=== PATIENT | female | born 1990 | race Caucasian/White ===

== ENCOUNTER 2017-09-05 06:51 | Inpatient (IN) ==
--- OUTSIDE RECORDS SUMMARY | 2017-09-10 16:10 | External Medical Summary | Continuity of Care Document ---
:1990 Author Organization [facility] Address [address] [place], [place] [id number] Phone Care Team Providers Name Role Phone Ping Ojeda MD Unavailable Unavailable Allergies, Adverse Reactions, Alerts Substance Reaction Severity Status PENICILLIN Unknown Active amoxicillin Unknown Active Medications Medication Instructions Dosage Effective Dates Status Comments (start - stop) ferrous sulfate 325 take 1 tablet by 325 MG - Active mg (65 mg iron) ORAL route every tablet day Enzyme Digest - Active capsule multivitamin tablet take 1 tablet by Not Available - Active oral route every day with food Probiotic 10 billion - Active cell capsule Problems Condition Effective Dates (start - stop) Clinical Status Encntr for suprvsn of normal first - preg, third trimester Encounter For Screening For - Streptococcus B 36 weeks gestation of - Encntr for suprvsn of normal first - preg, first trimester 10 weeks gestation of - Encntr for suprvsn of normal first - preg, second trimester 27 weeks gestation of - Matern care for oth or susp poor fetl - grth, 2nd tri, unsp 20 weeks gestation of - 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 Encntr for suprvsn of normal first - preg, third trimester 37 weeks gestation of - Encntr for suprvsn of normal first - preg, second trimester 14 weeks gestation of - Encntr for suprvsn of normal first - preg, second trimester 24 weeks gestation of - Encntr for suprvsn of normal first - preg, second trimester 20 weeks gestation of - Encntr for suprvsn of normal first - preg, second trimester 19 weeks gestation of - Encntr for suprvsn of normal first - preg, third trimester 30 weeks gestation of - Encntr for suprvsn of normal first - preg, third trimester 38 weeks gestation of - Encntr for suprvsn of normal first - preg, third trimester 39 weeks gestation of - Encntr for suprvsn of normal first - preg, third trimester 33 weeks gestation of - Encntr for suprvsn of normal first - preg, third trimester 35 weeks gestation of - Procedures Procedure Date OB Visit No Charge - HOSIERY REPAIRER Cult, pathgnc orgnsm, screen Suscept study, microdilut/agar SOULEYMANE Results Test Name Date and Time Measure Units Reference Range Abnormal Flag Comments Panel Description: CULTURE, GROUP B STREP WITH SUSCEPTIBILITY CULTURE, GROUP B SEE NOTE A CULTURE, GROUP B STREP WITH STREP WITH 17:10:00 SUSCEPTIBILITY MICRO NUMBER: SUSCEPTIBILITY [id number] TEST STATUS: PRELIMINARY SPECIMEN SOURCE: VAGINAL/ANORECTAL SPECIMEN QUALITY: ADEQUATE RESULT: Group B Streptococcus isolated , susceptibility test report to follow.REPORT COMMENT:FASTING:UNKNOWNTest performed at [facility] [id number] [place] [address]Rautbyyu: BRO TUCKER DO,MPH Panel Description: CULTURE, GROUP B STREP WITH SUSCEPTIBILITY CULTURE, GROUP B SEE NOTE A CULTURE, GROUP B STREP WITH STREP WITH 17:10:00 SUSCEPTIBILITY MICRO NUMBER: SUSCEPTIBILITY [id number] TEST STATUS: FINAL SPECIMEN SOURCE: VAGINAL/ANORECTAL SPECIMEN QUALITY: ADEQUATE RESULT: Group B Streptococcus isolated Group B Strep INT SOULEYMANE AMPICILLIN S <=0.25 CEFOTAXIME S <=0.12 CEFTRIAXONE S <=0.12 CLINDAMYCIN S <=0.25 1 LEVOFLOXACIN S 0.5 PENICILLIN S <=0.06 VANCOMYCIN S 0.5S=Susceptible I=Intermediate R=Resistant *=Not TestedNR=Not Reported NN=See Therapy CommentsTHERAPY COMMENTS Note 1: Results of erythromycin testing indicate that testing for inducible clindamycin resistance is not required.REPORT COMMENT:FASTING:UNKNOWNTest performed at [facility] [id number] [place] [address]Trmadzer: BRO TUCKER DO,MPH Advance Directives Directive Yes / No Effective Date File Name Unknown Encounters Encounter Practice Location Reason(s) Diagnoses Date Provider Care Team Description For Visit Members Jon Hernandez for Frank-0 Payne Referring In Womens suprvsn of normal 9-201 Tayla. Provider: Buffy FUNK, first preg, third 8 700 Ping Martin [email or web address] weeks Medical Fast, 110 1522, gestation of [facility] Wilian Olivas, Jeff Lucero [facility], [address], , Fatou Augustine, [place], [address]. tel:[phone] tel:[phone] , . [id number] tel: [phone] Jon Hernandez for Frank-0 Payne Referring In Womens suprvsn of normal 2-201 Tayla. Provider: Buffy FUNK, first preg, third 8 700 Pingronnie Martin [email or web address] weeks Medical Fast, 110 1522, gestation of [facility] Wilian Olivas, Jeff Lucero [facility], [address], , Fatou Augustine, [place], [address]. tel:[phone] tel:[phone] , . [id number] tel: [phone] Jon Augustine Streptococcus B Dec-2 Payne Referring In Womens carrier state 6-201 Tayla. Provider: Buffy FUNK, complicating 7 700 Ping PO Veronica pregnancyEncntr Medical Fast, 110 1522, for suprvsn of [facility] [place], normal first Jeff Lucero, preg, third 120, [address], , [email or web address] weeks Fatou Augustine, [place], [address]. tel: [phone] tel: , [place]. [id number] tel: [phone] Jon Augustine Encntr for Dec-2 Payne Referring In Womens suprvsn of normal 0-201 Tayla. Provider: Buffy FUNK, first preg, third 7 700 Ping NICK Box trimesterEncounte Medical Fast, 110 1522, r For Center Cedeno [place], Screening For Jeff Lucero, Streptococcus B36 120, [address], [id number], weeks gestation [facility], [place], [address]. tel:[phone] tel: , [place]. [id number] tel: [phone] Jon Augustine Encntr for Dec-1 Payne Referring In Womens suprvsn of normal 1-201 Tayla. Provider: Buffy FUNK, first preg, third 7 700 Ping NICK Box [email or web address] weeks Medical Fast, 110 1522, gestation of [facility] Wilian Olivas, Jeff Lucero [place], 120, [address], [id number], [facility], [place], [address]. tel: [phone] tel: , [place]. [id number] tel: [phone] Jon Augustine Encntr for Nov-2 Payne Referring In Womens suprvsn of normal 8-201 Tayla. Provider: Buffy FUNK, first preg, third 7 700 Ping NICK Box [email or web address] weeks Medical Fast, 110 1522, gestation of [facility] Wilian Olivas, Jeff Lucero [place], 120, [address], [id number], [place], [place], [address]. tel: [phone] tel: , [place]. [id number] tel: [phone] Jon Augustine Encntr for Nov-0 Payne Referring In Womens suprvsn of normal 7-201 Tayla. Provider: Buffy FUNK, first preg, third 7 700 Ping PO Box [email or web address] weeks Medical Fast, 110 1522, gestation of [facility] Wilian Olivas, Jeff Lucero, [address], [address], [id number], [facility] [place], [address]. tel:+ [phone] tel: , [place]. [id number] tel: [phone] Jon Augustine Encntr for Oct-1 Payne Referring In Womens suprvsn of normal 8-201 Tayla. Provider: Buffy FUNK, first preg, 7 700 Ping NICK Box second Medical Fast, 110 1522, [email or web address] weeks [place] Rafiq Olivas, gestation of Jeff Lucero, [address], [address], [id number], [facility], [place], [address]. tel:+ [phone] tel:[phone] , [place]. [id number] tel: [phone] Jon Augustine Encntr for Sep-2 Payne Referring In Womens suprvsn of normal 7-201 Tayla. Provider: Buffy FUNK, first preg, 7 700 Ping PO Box second Medical Fast, 110 1522, [email or web address] weeks [place] Rafiq Olivas, gestation of Jeff Lucero, [address], [address], [id number], [facility], [place], [address]. tel:+ [phone] tel: , [place]. [id number] tel: [phone] Jon Augustine Encntr for Aug-3 Payne Referring In Womens suprvsn of normal 0-201 Tayla. Provider: Buffy FUNK, first preg, 7 700 Ping PO Box second Medical Fast, 110 1522, [email or web address] weeks [place] Rafiq Olivas, gestation of Jeff Lucero, [address], [address], [id number], [facility], [place], [address]. tel:+ [phone] tel: , [place]. [id number] tel: [phone] Jon Augustine Matern care for Aug-3 Payne Referring In Womens Ultrasound oth or susp poor 0-201 Tayla. Provider: Buffy FUNK, fetl grth, 2nd 7 700 Ping PO Box tri, [email or web address] weeks Medical Fast, 110 1522, gestation of [place] Rafiq Kerrchita, Jeff Lucero [facility], [address], [address], [id number], [place], [place], [address]. tel: [phone] tel: , [place]. [id number] tel: [phone] Jon Augustine Encntr for Aug-2 Payne Referring In Womens suprvsn of normal 2-201 Tayla. Provider: Buffy FUNK, first preg, 7 700 Ping PO Box second Medical Fast, 110 1522, [email or web address] weeks Center Wilian [place], gestation of Jeff Lucero [facility], [address], [address], [id number], [place], [place], [address]. tel: [phone] tel: , [place]. [id number] tel: [phone] Jon Augustine Encntr for Santosh-1 Payne Referring In Womens suprvsn of normal 9-201 Tayla. Provider: Buffy FUNK, first preg, 7 700 Ping PO Box second Medical Fast, 110 1522, [email or web address] weeks Center Wilian Olivas, gestation of Jeff Lucero [place], 120, [address], [id number], [place], [place], [address]. tel:+ [phone] tel: , [place]. [id number] tel: [phone] Jon Augustine Encntr for Ramesh-2 Payne Referring In Womens suprvsn of normal 1-201 Tayla. Provider: Buffy FUNK, first preg, first 7 700 Ping PO Box [email or web address] weeks Medical Fast, 110 1522, gestation of [place] Rafiq Kerrchita, Jeff Lucero [place], 120, [address], [id number], [place], [place], [address]. tel: [phone] tel: , . [id number] tel: [phone] Family History Family Member Diagnosis Age At Onset Maternal Grandfather Cardiovascular Disease Paternal Grandmother Breast Cancer Maternal Grandfather Stroke Maternal Grandmother Diabetes Maternal Grandmother Cardiovascular Disease Maternal Grandmother Hypertension Sister Thyroid Disorder No family history of Venous Thrombosis No family history of Pulmonary Embolism Maternal Grandmother Kidney Cancer Immunizations Vaccine Date Status Comments Tdap completed Source: New Immunization Record Influenza, injectable, completed Source: New Immunization Record quadrivalent, preservative free, 3 yrs or older Payers Payer name Insurance type Covered green party ID Authorization(s) BMI [place] WPTX CI [id number] [facility] CI [id number] BMI [place] WPPA CI [id number] BMI [facility] CI [id number] Social History Type Description Quantity Date Captured Alcohol Use Details No Caffeine Use Details Unknown Tobacco Use Status Unknown Smoking Status Never smoker Vital Signs Date / Height Weight BMI Pulse Blood Temperature Respiratory Body Head BMI Time: Rate Pressure Rate Surface Circumference percentile Area 2 4:52 kg/m PM eter (2) 139.00 31.1 107/65 lbs 6 mm[Hg] 4:56 kg/m PM eter (2) Chief Complaint And Reason For Visit Unknown Chief Complaint And Reason For Visit Reason For Referral Reason For Referral Unknown Plan Of Care Date Type Action Status Appointment Chanda Juarez BOOKED Future Order: Radiology Order Complete OB Ultrasound > 14 Ordered Weeks ([id number]) Date Type Problem Goal Intervention Status Start Date Unknown. History Of Present Illness Encounter Date Complaint History Of Present Illness This patient has no known history of present illness Functional Status Encounter Date Functional Assessment Cognitive Assessment Unknown Medications Administered Medication Instructions Dosage Effective Dates (start - stop) Status Comments Drug Treatment Unknown Instructions Date Instruction Additional Information gestational glucose lab screening HIV and other routine tests risk factors identified by history anticipated course of care nutrition and weight gain counseling, special diet toxoplasmosis precautions (cats / raw meat) sexual activity exercise indications for ultrasound influenza vaccine environmental / work hazards travel use of any medications (including supplements, vitamins, herbs, OTC drugs) domestic violence seat belt use childbirth classes / hospital facilities hospital registration genetic testing new ob handbook
--- OUTSIDE RECORDS SUMMARY | 2017-09-10 16:10 | External Medical Summary | Continuity of Care Document ---
:1990 Author Organization [facility] Address [address] [place], [place] [id number] Phone Care Team Providers Name Role Phone Ping Ojeda MD Unavailable Unavailable Allergies, Adverse Reactions, Alerts Substance Reaction Severity Status PENICILLIN Unknown Active amoxicillin Unknown Active Medications Medication Instructions Dosage Effective Dates Status Comments (start - stop) Enzyme Digest - Active capsule multivitamin tablet take 1 tablet by Not Available - Active oral route every day with food Probiotic 10 billion - Active cell capsule Problems Condition Effective Dates (start - stop) Clinical Status Matern care for oth or susp poor fetl - grth, 2nd tri, unsp 20 weeks gestation of - Encntr for [...] second trimester 19 weeks gestation of - Procedures Procedure Date Ultrasound exam of preg uterus, complete Results Test Name Date and Time Measure Units Reference Range Abnormal Flag Comments Unknown Advance Directives Directive Yes / No Effective Date File Name Unknown Encounters Encounter Practice Location Reason(s) Diagnoses Date Provider Care Team Description For Visit Members Jon Hernandez for Payne Referring In [facility] suprvsn of Tayla. 700 Provider: nadine Mccoy Medical Ping [address], first preg, Center Rusty [place], [address] [place], [place], second Jeff 120, E Wilian [id number], [email or web address] Dmitri [place] weeks [place], [address], tel: gestation [id number], [place], [address] [place], [address]. tel: tel:[phone] Jon Augustine Matern care Payne Referring In Womens Ultrasound for oth -2016 Tayla. 700 Provider: Buffy FUNK [facility] Ping [address], fetl grth, [address] [place] [address], 2nd tri, Jeff [address], [address] C[address] [id number], [email or web address] Dmitri [place] weeks [place], [address], tel:+21 gestation [phone], [place], [address] [place], [address]. tel: tel:[phone] Jon Augustine Encntr for Payne Referring In Womens [facility] Tayla. 700 Provider: nadine Mccoy [facility] Ping [address], first preg, [address], [address] [place] [address], second Jeff 120, [address] [id number], [email or web address] Dmitri [place] weeks [place], [address], tel:21 gestation [id number], [place], [address] [place], [address]. tel: tel:[phone] Jon Augustine Encntr for Payne Referring In Womens [facility] Tayla. 700 Provider: nadine Mccoy [facility] Ping [address], first preg, [address], [address] [place] [address], second Jeff 120, [address] [id number], [email or web address] Dmitri [place] weeks [place], [address], tel:21 gestation [id number], [place], [address] [place], [address]. tel: tel:[phone] Jon Augustine Encntr for Payne Referring In Womens [facility] Tayla. 700 Provider: nadine Mccoy [facility] Ping [address], first preg, [address], [address] [place] [address], first Jeff 120, E Wilian [id number], [email or web address] Dmitri Augustine PO [place] weeks [place], [address], tel:21 gestation [id number], [place], [address] [place], [address]. tel: tel:[phone] Family History Family Member Diagnosis Age At Onset Maternal Grandfather Cardiovascular Disease Paternal Grandmother Breast Cancer Maternal Grandfather Stroke Maternal Grandmother Diabetes Maternal Grandmother Cardiovascular Disease Maternal Grandmother Hypertension Sister Thyroid Disorder No family history of Venous Thrombosis No family history of Pulmonary Embolism Maternal Grandmother Kidney Cancer Immunizations Vaccine Date Status Comments Unknown Payers Payer name Insurance type Covered alliance party ID Authorization(s) BMI [facility] CI [id number] Social History Type Description Quantity Date Captured Unknown Vital Signs Date / Height Weight BMI Pulse Blood Temperature Respiratory Body Head BMI Time: Rate Pressure Rate Surface Circumference percentile Area Unknown Chief Complaint And Reason For Visit Unknown Chief Complaint And Reason For Visit Reason For Referral Reason For Referral Unknown Plan Of Care Date Type Action Status Appointment Chanda Juarez BOOKED Future Order: Radiology Order Complete OB Ultrasound > 14 Ordered Weeks ([id number]) Date Type Problem Goal Intervention Status Start Date Unknown. History Of Present Illness Encounter Date Complaint History Of Present Illness This patient has no known history of present illness Functional Status Encounter Date Functional Assessment Cognitive Assessment Unknown Medications Administered Medication Instructions Dosage Effective Dates (start - stop) Status Comments Drug Treatment Unknown Instructions Date Instruction Additional Information HIV and other routine tests risk factors [...]
--- OUTSIDE RECORDS SUMMARY | 2017-09-10 16:10 | External Medical Summary | Continuity of Care Document ---
:1990 Author Organization [facility] Address [address] [place], [place] [id number] Phone Care Team Providers Name Role Phone [...] Effective Dates (start - stop) Clinical Status 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 Encntr [...] Procedures Procedure Date OB Visit No Charge Results Test Name Date and Time Measure Units Reference Range Abnormal Flag Comments Unknown Advance Directives Directive Yes / No Effective Date File Name Unknown Encounters Encounter Practice Location Reason(s) Diagnoses Date Provider Care Team Description For Visit Members Jon Augustine Encntr for Aug-0 Payne Referring In Womens suprvsn of normal 9-201 Tayla. Provider: Buffy FUNK, first preg, third 8 700 Ping PO Box [email or web address] weeks Medical Fast, 110 1522, gestation of [facility] Cedeno [place], Dr [facility], [address], [address], [id number], [place] [facility] [place], [address]. tel:+ [phone] tel: [phone] , . [id number] tel: [phone] Jon Augustine Encntr for Aug-0 Payne Referring In Womens suprvsn of normal 2-201 Tayla. Provider: Buffy FUNK, first preg, third 8 700 Ping PO Box [email or web address] weeks Medical Fast, 110 1522, gestation of [facility], Dr [facility], [address], [address], [id number], [place] [facility] [place], [address]. tel:[phone] tel: , [place]. [id number] tel: [phone] [facility] Streptococcus B Dec-2 Payne Referring In Womens carrier state 6-201 Tayla. Provider: Buffy FUNK, complicating 7 700 Ping PO Box pregnancyEncntr Medical Fast, 110 1522, for suprvsn of [facility] Wilian Kerrchita, normal first Jeff Lucero, preg, third 120, [address], [id number], [email or web address] weeks [place], [place], [address]. tel: [phone] tel: , [place]. [id number] tel: [phone] [facility] Encntr for Dec-2 Payne Referring In Womens suprvsn of normal 0-201 Tayla. Provider: Buffy FUNK, first preg, third 7 700 Ping PO Box trimesterEncounte Medical Fast, 110 1522, r For Center Rafiq Wilian Olivas, Screening For Jeff Lucero [place], Streptococcus B36 120, [address], [id number], weeks gestation [place], [place], [address]. tel: [phone] tel: , [place]. [id number] tel: [phone] [facility] Hernandez for Dec-1 Payne Referring In Womens suprvsn of normal 1-201 Tayla. Provider: Buffy FUNK, first preg, third 7 700 Ping PO Box [email or web address] weeks Medical Fast, 110 1522, gestation of Center Rafiq Wilian Olivas, Jeff Lucero [place], 120, [address], [id number], [place], [place], [address]. tel: [phone] tel: , [place]. [id number] tel: [phone] [facility] Leonntr for Nov-2 Payne Referring In Womens suprvsn of normal 8-201 Tayla. Provider: Buffy FUNK, first preg, third 7 700 Ping PO Box [email or web address] weeks Medical Fast, 110 1522, gestation of Center Wilian Olivas, Jeff Lucero [place], [address], [address], , [place], [address]. tel: [phone] tel: , . [id number] tel: [phone] Jon Augustine Encntr for Nov-0 Payne Referring In Womens suprvsn of normal 7-201 Tayla. Provider: Buffy FUNK, first preg, third 7 700 Ping PO Box [email or web address] weeks Medical Fast, 110 1522, gestation of [place] Rafiq Olivas, Jeff Lucero, [address], [address], , [place], [address]. tel: [phone] tel: , . [id number] tel: [phone] Jon Augustine Encntr for Oct-1 Payne Referring In Womens suprvsn of normal 8-201 Tayla. Provider: Buffy FUNK, first preg, 7 700 Ping PO Box second Medical Fast, 110 1522, [email or web address] weeks [place] Rafiq Olivas, gestation of Jeff Lucero, [address], [address], [id number], [place], [address]. tel: [phone] tel: , . [id number] tel: [phone] Jon Augustine Encntr for Sep-2 Payne Referring In Womens suprvsn of normal 7-201 Tayla. Provider: Buffy FUNK, first preg, 7 700 Ping PO Box second Medical Fast, 110 1522, [email or web address] weeks [place] Rafiq Olivas, gestation of Jeff Lucero, 120, [address], [id number], [facility] [place], [address]. tel: [phone] tel: , [place]. [id number] tel: [phone] Jon Augustine Encntr for Aug-3 Payne Referring In Womens suprvsn of normal 0-201 Tayla. Provider: Buffy FUNK, first preg, 7 700 Ping PO Box second Medical Fast, 110 1522, [email or web address] weeks [place] Rafiq Olivas, gestation of Jeff Lucero, [address], [address], [id number], [facility] [place], [address]. tel:+ [phone] tel: , [place]. [id number] tel: [phone] Jon Augustine Matern care for Aug-3 Payne Referring In Womens Ultrasound oth or susp poor 0-201 Tayla. Provider: Buffy FUNK, fetl grth, 2nd 7 700 Ping PO Box tri, [email or web address] weeks Medical Fast, 110 1522, gestation of [facility], Jeff Lucreo [place], [address], [address], [id number], [facility], [place], [address]. tel:[phone] tel: , [place]. [id number] tel: [phone] Jon Augustine Encntr for Aug-2 Payne Referring In Womens suprvsn of normal 2-201 Tayla. Provider: Buffy FUNK, first preg, 7 700 Ping PO Box second Medical Fast, 110 1522, [email or web address] weeks [facility] Wilian Olivas, gestation of Jeff Lucero, [address], [address], [id number], [facility], [place], [address]. tel:[phone] tel: , [place]. [id number] tel: [phone] Jon Augustine Encntr for Santosh-1 Payne Referring In Womens suprvsn of normal 9-201 Tayla. Provider: Buffy FUNK, first preg, 7 700 Ping PO Veronica second Medical Fast, 110 1522, [email or web address] weeks [facility] Wilian Olivas, gestation of Jeff Lucero, [address], [address], [id number], [facility], [place], [address]. tel:+ [phone] tel: , [place]. [id number] tel: [phone] Jon Augustine Encntr for Ramesh-2 Payne Referring In Womens suprvsn of normal 1-201 Tayla. Provider: Buffy FUNK, first preg, first 7 700 Ping PO Box [email or web address] weeks Medical Fast, 110 1522, gestation of Center Rafiq Olivas, Jeff Lucero [place], 120, [address], [id number], [place], [place], [address]. [phone] tel:[phone] , . [id number] tel: [phone] Family History Family Member Diagnosis Age At [...] older Payers Payer name Insurance type Covered alliance party ID Authorization(s) BMI [place] WPPA CI [id number] [facility] CI [id number] BMI [place] WPPA CI [id number] BMI [place] [facility]PP[facility] CI [id number] Social History Type Description Quantity Date Captured Alcohol Use Details No Caffeine Use Details Unknown Tobacco Use Status Unknown Smoking Status Never smoker Vital Signs Date / Height Weight BMI Pulse Blood Temperature Respiratory Body Head BMI Time: Rate Pressure Rate Surface Circumference percentile Area 138.90 31.1 / lbs 4 mm[Hg] 3:50 kg/m PM eter (2) Chief Complaint And Reason For Visit Unknown Chief Complaint And Reason For Visit Reason For Referral Reason For Referral Unknown Plan Of Care Date Type Action Status Appointment Chanda Juarez BOOKED Future Order: Radiology Order Complete OB Ultrasound > 14 Ordered Weeks ([id number]) Date Type Problem Goal Intervention Status Start [...]
--- OUTSIDE RECORDS SUMMARY | 2017-09-10 16:10 | External Medical Summary | Continuity of Care Document ---
:1991 Author Organization [facility] Address [address] [place], [place] [id number] Phone Care Team Providers Name Role Phone [...] For Visit Members Jon Augustine Encntr for Payne Referring In Womens banner Tayla. 700 Provider: nadine Mccoy Medical Ping [address], first preg, [place] Rusty Lucero, [address] [place], [place], third Jeff 120, [address] [id number], [email or web address] Dmitri Augustine [place], [address], tel:+[phone] gestation [id number], [place], [address] [place], [address]. tel: tel:[phone] Jon Augustine Encntr for Payne Referring In [facility] Tayla. 700 Provider: nadine Mccoy Medical Ping [address], first preg, Center Rusty Lucero, [address] [place], [place], third Jeff 120, E Wilian [id number], [place] [facility] [place], [address], tel:+19380 gestation [id number], [place], [address] [place], [address]. tel: tel:[phone] Jon Augustine Encntr for Payne Referring In Womens banner Tayla. 700 Provider: nadine Mccoy Medical Ping [address], first preg, Center Rusty Lucero, [address] [place], [place], third Jeff 120, E [place] [id number], [email or web address] Dmitri Augustine [place], [address], tel:+25505 gestation [id number], [place], [address] [place], [address]. tel: tel:[phone] Jon Augustine Encntr for Payne Referring In Womens banner Tayla. 700 Provider: nadine Mccoy Medical Ping [address], first preg, [place] Rusty Lucero, [address] [place], [place], second Jeff 120, [address] [place] [id number], [email or web address] [place] [facility] [place], [address], tel:+[phone] gestation [id number], [place], [address] [place], [address]. tel: tel:[phone] Jon Augustine Encntr for Payne Referring In Womens banner Tayla. 700 Provider: nadine Mccoy Medical Ping [address], first preg, Center Rusty Lucero, [address] [place], [place], second Jeff 120, [address] [place] [id number], [email or web address] [place] [facility] [place], [address], tel:+16889 gestation [id number], [place], [address] [place], [address]. tel: tel:[phone] Jon Augustine Encntr for Payen Referring In Womens banner Tayla. 700 Provider: nadine Mccoy Medical Ping [address], first preg, Center Rusty Lucero, [address] [place], [place], second Jeff 120, [address] [place] [id number], [email or web address] Augustine [facility] [place], [address], tel:+29854 gestation [id number], [place], [address] [place], [address]. tel: tel:[phone] Jon Augustine Matern care Payne Referring In Womens Ultrasound for ot or Tayla. 700 Provider: gee Mccoy poor Medical Ping [address], fetl grth, [address], [address] [place], [place], 2nd tri, Jeff 120, [address] [place] [id number], [email or web address] [place] [facility] [place], [address], tel:+60788 gestation [id number], [place], [address] [place], [address]. tel: tel:[phone] Jon Augustine Encntr for Payne Referring In [facility] Tayla. 700 Provider: nadine Mccoy [facility] [address], first preg, [place] Rusty Lucero, [address] [place], [place], second Jeff 120, [address] [place] [id number], [email or web address] Dmitri Augustine [place], [address], tel:+21 gestation [id number], [place], [address] [place], [address]. tel: tel:[phone] Jon Augustine Encntr for Payne Referring In Womens banner Tayla. 700 Provider: nadnie Mccoy [facility] [address], first preg, Center Rusty Lucero, [address] [place], [place], second Jeff 120, [address] [place] [id number], [email or web address] Dmitri Augustine [place], [address], tel:21 gestation [id number], [place], [address] [place], [address]. tel: tel:[phone] Jon Augustine Encntr for Payne Referring In Womens banner Tayla. 700 Provider: nadine Mccoy [facility] [address], first preg, [place] Rusty Lucero, [address] [place], [place], first Jeff 120, [address] [place] [id number], [email or web address] [place] [facility] [place], [address], tel:21 gestation [id number], [place], [address] [place], [address]. tel: tel:[phone] Family History Family Member Diagnosis Age At [...] older Payers Payer name Insurance type Covered republican ID Authorization(s) [facility] CI [id number] BMI [place] WPPA CI [id number] BMI [place] WPPA CI [id number] Social History Type Description Quantity Date Captured Alcohol Use Details No Caffeine Use Details Unknown Tobacco Use Status Unknown Smoking Status Never smoker Vital Signs Date / Height Weight BMI Pulse Blood Temperature Respiratory Body Head BMI Time: Rate Pressure Rate Surface Circumference percentile Area 134.80 30.2 104/62 2017 lbs 2 mm[Hg] 4:52 kg/m PM eter (2) 0 4:47 kg/m PM eter (2) Chief Complaint And Reason For Visit Unknown Chief Complaint And Reason For Visit Reason For Referral Reason For Referral Unknown Plan Of Care Date Type Action Status Appointment Chanda Juarez BOOKED Appointment Chanda Juarez BOOKED Appointment Chanda Juarez BOOKED Appointment Chanda Juarez BOOKED Future Order: Radiology Order Complete OB Ultrasound > 14 Ordered Weeks ([id number]) Date Type Problem Goal Intervention Status Start [...]
--- OUTSIDE RECORDS SUMMARY | 2017-09-10 16:10 | External Medical Summary | Continuity of Care Document ---
:1991 Author Organization [facility] Address [address] [place], [place] [id number] Phone Care Team Providers Name Role Phone [...] first trimester 10 weeks gestation of - Matern care for oth or susp poor fetl - grth, 2nd tri, unsp 20 weeks gestation of - Encntr for suprvsn of normal first - preg, second trimester 14 weeks gestation of - Encntr for suprvsn of normal first - preg, second trimester 20 weeks gestation of - 19 weeks gestation of - Encntr for suprvsn of normal first - preg, second trimester Procedures Procedure Date Unknown Results Test Name Date and Time Measure Units Reference Range Abnormal Flag Comments Unknown Advance Directives Directive Yes / No Effective Date File Name Unknown Encounters Encounter Practice Location Reason(s) Diagnoses Date Provider Care Team Description For Visit Members Jon Augustine Encntr for Payne Referring In [facility] suprvsn of 0-201 Tayla. Provider: [place], normal first 7 700 Ping PO [address], second Medical Fast, [address], [email or web address] [facility] Wilian Olivas, weeks gestation Jeff Lucero [facility], of 120, [address], [id number], [facility] [place], [place], [address]. tel:[phone] tel: , [place]. [id number] tel: [phone] Jon Augustine Matern care for Aug-3 Payne Referring In Womens Ultrasound oth or susp poor 0-201 Tayla. Provider: Buffy FUNK, fetl grth, 2nd 7 700 Ping PO [address], [email or web address] Medical Fast, [address] 1522, weeks gestation Center Rafiq Olivas, of Jeff Lucero [place], 120, [address], [id number], [facility] [place], [place], [address]. tel:[phone] tel: , [place]. [id number] tel: [phone] Jon Augustine 19 weeks Aug-2 Payne Referring In Womens gestation of 2-201 Tayla. Provider: Buffy FUNK pregnancyEncntr 7 700 Ping PO Box for suprvsn of Medical Fast, [address] 1522, normal first Center Rafiq Olivas, preg, second Jeff Lucero [facility], trimester 120, [address], [id number], [facility] [place], [place], [address]. tel:[phone] tel: , [place]. [id number] tel: [phone] Jon Augustine Aug-1 Payne In Womens 6-201 Tayla. Buffy FUNK, 7 700 PO [address] Medical [address]22, Center [place], [facility], 120, [id number], [place], [place], tel:[phone] , [place]. tel: [phone] Jon Augustine Encntr for Santosh-1 Payne Referring In Womens suprvsn of 9-201 Tayla. Provider: Buffy FUNK, normal first 7 700 Ping PO [address], second Medical Fast, [address] 1522, [email or web address] Center Rafiq Olivas, weeks gestation Jeff Lucero, of 120, [address], [id number], [facility] [place], [place], [address]. tel:[phone] tel: , [place]. [id number] tel: [phone] Associates [place] Encntr for Jan- Payne Referring In Womens suprvsn of 201 Tayla. Provider: Buffy FUNK, normal first 7 700 Ping NICK Martin preg, first Medical Fast, [address], [email or web address] Center Rafiq Olivas, weeks gestation Jeff Lucero [place], of 120, [address], [id number], [place], [address]. tel: [phone] tel:[phone] , . [id number] tel: [phone] Family History Family Member Diagnosis Age At Onset Maternal Grandfather Cardiovascular Disease Paternal Grandmother Breast Cancer Maternal Grandfather Stroke Maternal Grandmother Diabetes Maternal Grandmother Cardiovascular Disease Maternal Grandmother Hypertension Sister Thyroid Disorder No family history of Venous Thrombosis No family history of Pulmonary Embolism Maternal Grandmother Kidney Cancer Immunizations Vaccine Date Status Comments Unknown Payers Payer name Insurance type Covered democrat ID Authorization(s) [facility] CI [id number] Social History Type Description Quantity Date Captured [...] Complete OB Ultrasound > 14 Ordered Weeks (31946) Date Type Problem Goal Intervention Status Start [...]
--- OUTSIDE RECORDS SUMMARY | 2017-09-10 16:11 | External Medical Summary | Continuity of Care Document ---
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 700 Provider: NICK FUNK Medical Ping [place], [address], first preg, Center Dr, [address] [place], [place], second Jeff 120, [address] [id number], [place] [email or web address] [place] [address], tel:[phone] weeks [place], 6790 gestation [id number], [place], [address]. of [place]. tel:[phone] tel:[phone] [facility] [place] Encntr for Payne Referring [facility] Tayla. 700 Provider: NICK FUNK Medical Ping [place], 1522, first preg, Center , [address] [place], [place], first Jeff 120, [address] [id number], [place] [email or web address] [place], [address], tel:[phone] weeks Fatou [place], 6790 gestation [id number], [place], [address]. of [place]. tel:[phone] tel:[phone] Family History Family Member Diagnosis Age At Onset Maternal Grandfather Cardiovascular Disease Paternal Grandmother Breast Cancer Maternal Grandfather Stroke Maternal Grandmother Diabetes Maternal Grandmother Cardiovascular Disease Maternal Grandmother Hypertension Sister Thyroid Disorder No family history of Venous Thrombosis No family history of Pulmonary Embolism Maternal Grandmother Kidney Cancer Immunizations Vaccine Date Status Comments Unknown Payers Payer name Insurance type Covered constitution party ID Authorization(s) [facility] CI [id number] Social History Type Description Quantity Date Captured Alcohol Use Details No Caffeine Use Details Unknown Tobacco Use Status Unknown Smoking Status Never smoker Vital Signs Date / Height Weight BMI Pulse Blood Temperature Respiratory Body Head BMI Time: Rate Pressure Rate Surface Circumference percentile Area 110.00 24.6 115/61 lbs 6 mm[Hg] 4:46 kg/m PM eter (2) 9 4:42 kg/m PM eter (2) Chief Complaint And Reason For Visit Unknown Chief Complaint And Reason For Visit Reason For Referral Reason For Referral Unknown Plan Of Care Date Type Action Status Appointment Chanda Juarez BOOKED Date Type Problem Goal Intervention Status Start [...]
--- OUTSIDE RECORDS SUMMARY | 2017-09-10 16:11 | External Medical Summary | Continuity of Care Document ---
:1991 Author Organization [facility] Address [address] [place], [place] [phone] Phone Care Team Providers Name Role Phone [...] weeks gestation of - Procedures Procedure Date Immuniz admnin, 1 vac, sngl/combo 19 Yrs + TDAP VACCINE >7 IM OB Visit No Charge Results Test Name Date and Time Measure Units Reference Range Abnormal Flag Comments Unknown Advance Directives Directive Yes / No Effective Date File Name Unknown Encounters Encounter Practice Location Reason(s) Diagnoses Date Provider Care Team Description For Visit Members Jon Leonntr for Payne Referring In [facility] Tayla. 700 Provider: Buffy FUNK [facility] [address], first preg, [place] Rusty Lucero, [address] [place] [address], third Jeff 120, E [address] [id number], Dmitri Augustine [facility] weeks [place], [address], tel:+21 gestation [id number], [place], [address] [place], [address]. tel: tel:[phone] Jon Augustine Encntr for Payne Referring In [facility] Tayla. 700 Provider: nadine Mccoy [employer] [address], first preg, [address], [address] [place], [place], second Jeff 120, E [address] [id number], [email or web address] Dmitri Augustine [place] weeks [place], [address], tel:21 gestation [id number], [place], [address] [place], [address]. tel: tel:[phone] Jon Augustine Encntr for Payne Referring In [facility] Tayla. 700 Provider: Buffy FUNK [employer] [address], first preg, [place] Rusty Lucero, [address] [place], [place], second Jeff 120, E [address] [id number], Dmitri Augustine [place] weeks [place], [address], tel:21 gestation [id number], [place], [address] [place], [address]. tel: tel:[phone] [phone] Jon Augustine Encntr for Payne Referring In [facility] Tayla. 700 Provider: Buffy FUNK normal Medical Ping [address], first preg, Center Rusty Lucero, [address] [place], [place], second Jeff 120, E [address] [id number], [email or web address] Dav[place] [facility] [place] weeks [place], [address], tel:+21 gestation [id number], [place], [address] [place], [address]. tel: tel:[phone] Jon Augustine Matern care Payne Referring In Womens Ultrasound for [facility] or Tayla. 700 Provider: Buffy FUNK [facility] Medical Ping [address], fetl grth, Center Rusty Lucero, [address] [place], [place], 2nd tri, Jeff 120, E [address] [id number], [email or web address] [place] [facility] [place] weeks [place], [address], tel:+21 gestation [id number], [place], [address] [place], [address]. tel: tel:[phone] Jon Augustine Encntr for Payne Referring In Womens [facility] Tayla. 700 Provider: nadine Mccoy Medical Ping [address], first preg, Center Rusty Lucero, [address] [place], [place], second Jeff 120, E Wilian [id number], [email or web address] [place] [facility] [place], [address], tel:+21 gestation [id number], [place], [address] [place], [address]. tel: tel:[phone] Jon Augustine Encntr for Payne Referring In Womens [facility] Tayla. 700 Provider: Buffy FUNK normal [employer] Ping [address], first preg, Center Rusty Lucero, [address] [place], [place], second Jeff 120, E [place]ian [id number], [email or web address] [place] [facility] [place] weeks [place], [address], tel:+21 gestation [id number], [place], [address] [place], [address]. tel: tel:[phone] Jon Augustine Encntr for Payne Referring In Womens [facility] Tayla. 700 Provider: nadine Mccoy [address], first preg, Center Rusty Lucero, [address] [place], [place], first Jeff 120, E [address] [id number], [email or web address] Augustine, Street PO [place] weeks [place], [address], tel:21 gestation [id number], [place], [address] [place], [address]. tel: tel:[phone] [phone] Family History Family Member Diagnosis Age At [...] older Payers Payer name Insurance type Covered democrat ID Authorization(s) BMI [place] WPPA CI [id number] BMI [place] WPPA CI [id number] BMI [place] [employer]PPA CI [id number] Social History Type Description Quantity Date Captured Alcohol Use Details No Caffeine Use Details Unknown Tobacco Use Status Unknown Smoking Status Never smoker Vital Signs Date / Height Weight BMI Pulse Blood Temperature Respiratory Body Head BMI Time: Rate Pressure Rate Surface Circumference percentile Area 129.80 29.1 / lbs 0 mm[Hg] 4:21 kg/m PM eter (2) Chief Complaint And Reason For Visit Unknown Chief Complaint And Reason For Visit Reason For Referral Reason For Referral Unknown Plan Of Care Date Type Action Status Appointment Chanda Juarez BOOKED Future Order: Radiology Order Complete OB Ultrasound > 14 Ordered Weeks ([id number]) Date Type Problem Goal Intervention Status Start [...]
--- OUTSIDE RECORDS SUMMARY | 2017-09-10 16:11 | External Medical Summary | Continuity of Care Document ---
:1991 Author Organization [facility] Allergies Active Description Code Type Severity Reaction Onset Reported/ Identified Relationship Clinical to Patient Status Yes amoxicillin 3675 1 N/A N/A Yes PENICILLIN 14931 1 N/A N/A Medications Medication Packaging Start Date Stop Date Route Dosage Sig Tablet 06/11/2017 FERROUS SULFATE take 1 tablet by ORAL route every day Problems Date Dx Coded Attending Type Code Diagnosis Diagnosed By 04/22/2017 Tayla Payne O36.5920 Matern care for oth or susp poor fetl grth, 2nd tri, unsp 04/22/2017 Tayla Payne Z3A.20 20 weeks gestation of 06/30/2017 Talya Payne Z34.03 Encntr for suprvsn of normal first preg, third trimester 06/30/2017 Tayla Payne Z3A.30 30 weeks gestation of Procedures Code Description [place] [address] Ultrasnd 04/22/2017 exam of preg uterus, compl 46204 OB Visit No 06/30/2017 Charge 09691 Immuniz 06/30/2017 admnin, 1 vac, sngl/combo 29491 TDAP VACCINE 06/30/2017 >7 IM Results There is no data. Encounters ACCT No. Visit Discharge Status Pt. Type Provider Facility Loc./Unit Complaint Date/Time [id number] 09/01/2017 09/01/2017 [facility] Outpatient Payne, 16:30:00 23:59:59 Tayla Dickerson [id number] 08/25/2017 08/25/2017 [facility] Outpatient Payne, 16:00:00 23:59:59 Tayla Dickerson [id number] 08/18/2017 08/18/2017 [facility] Outpatient Payne, 15:50:00 23:59:59 Tayla Dickerson [id number] 08/12/2017 08/12/2017 [facility] Outpatient Payne, 16:30:00 23:59:59 Tayla Dickerson [id number] 08/03/2017 08/03/2017 [facility] Outpatient Payne, 16:05:00 23:59:59 Talya Dickerson [id number] 07/21/2017 07/21/2017 [facility] Out[facility] Payne, 16:30:00 23:59:59 Tayla Dickerson [id number] 06/30/2017 06/30/2017 [facility] Outpatient Payne, 16:15:00 23:59:59 Tayla Dickerson [id number] 06/11/2017 06/11/2017 [facility] Outpatient Payne, 08:53:00 23:59:59 Tayla Dickerson [id number] 06/10/2017 06/10/2017 [facility] Outpatient Payne, 13:40:00 23:59:59 Tayla Dickerson [id number] 05/20/2017 05/20/2017 [facility] Outpatient Payne, 16:00:00 23:59:59 Tayla Dickerson [id number] 04/22/2017 04/22/2017 [facility] Outpatient Payne, 08:30:00 23:59:59 Tayla Dickerson [id number] 04/22/2017 04/22/2017 [facility] Outpatient Payne, 08:15:00 23:59:59 Tayla Dickerson [id number] 04/14/2017 04/14/2017 [facility] Outpatient Payne, 16:30:00 23:59:59 Tayla Dickerson [id number] 04/08/2017 04/08/2017 [facility] Outpatient Payne, 16:05:00 23:59:59 Tayla Dickerson [id number] 03/11/2017 03/11/2017 [facility] Outpatient Payne, 16:30:00 23:59:59 Tayla Dickerson [id number] 02/11/2017 02/11/2017 [facility] Outpatient Payne, 15:45:00 23:59:59 Tayla Dickerson
--- OUTSIDE RECORDS SUMMARY | 2017-09-10 16:11 | External Medical Summary | Continuity of Care Document ---
:1991 Author Organization [facility] Address [address] [place], [place] [phone] Phone Care Team Providers Name Role Phone [...] second trimester 20 weeks gestation of - Procedures Procedure Date OB Visit No Charge Results Test Name Date and Time Measure Units Reference Range Abnormal Flag Comments Unknown Advance Directives Directive Yes / No Effective Date File Name Unknown Encounters Encounter Practice Location Reason(s) Diagnoses Date Provider Care Team Description For Visit Members Jon Delcidr for Payne Referring In [facility] suprvsn of Emily. Gonsalves Provider: nadine Mccoy Medical Ping [address], first preg, Center Rusty Lucero, [address] [place], [place], second Jeff 120, E [address] [id number], [email or web address] Dmitri Augustine [place], [address], tel: gestation [id number], [place], [address] [place], [address]. tel: tel:[phone] Jon Augustine Matern care Payne Referring In Womens Ultrasound for oth or -2016 Tayla. 700 Provider: Buffy FUNK [facility] poor Medical Ping [address], fetl grth, [place] Rusty Lucero, [address] [place], [place], 2nd tri, Jeff 120, E Wilian [id number], [email or web address] Dmitri Augustine [place], [address], tel:21 gestation [id number], [place], [address] [place], [address]. tel: tel:[phone] Jon Augustine Encntr for Payne Referring In W[facility] Tayla. 700 Provider: nadine Mccoy Medical Ping [address], first preg, [address], [address] [place], [place], second Jeff 120, E Wilian [id number], [email or web address] Dmitri Augustine [place], [address], tel:21 gestation [id number], [place], [address] [place], [address]. tel: tel:[phone] Jon Augustine Encntr for Payne Referring In Womens [facility] Tayla. 700 Provider: nadine Mccoy Medical Ping [address], first preg, [address], [address] [place], [place], second Jeff 120, E Wilian [id number], [place] [facility] [place], [address], tel:21 gestation [id number], [place], [address] [place], [address]. tel: tel:[phone] Jon Augustine Encntr for Payne Referring In Womens [facility] Tayla. 700 Provider: nadine Mccoy Medical Ping [address], first preg, [address], [address] [place], [place], first Jeff 120, E Wilian [id number], [email or web address] Dmitri Augustine [place], [address], tel:21 gestation [id number], [place], [address] [place], [address]. tel: tel:[phone] Family History Family Member Diagnosis Age At Onset Maternal Grandfather Cardiovascular Disease Paternal Grandmother Breast Cancer Maternal Grandfather Stroke Maternal Grandmother Diabetes Maternal Grandmother Cardiovascular Disease Maternal Grandmother Hypertension Sister Thyroid Disorder No family history of Venous Thrombosis No family history of Pulmonary Embolism Maternal Grandmother Kidney Cancer Immunizations Vaccine Date Status Comments Unknown Payers Payer name Insurance type Covered libertarian ID Authorization(s) [facility] CI [id number] Social History Type Description Quantity Date Captured Alcohol Use Details No Caffeine Use Details Unknown Tobacco Use Status Unknown Smoking Status Never smoker Vital Signs Date / Height Weight BMI Pulse Blood Temperature Respiratory Body Head BMI Time: Rate Pressure Rate Surface Circumference percentile Area 115.20 25.8 92/55 lbs 2 mm[Hg] 4:57 kg/m PM eter (2) 6 4:38 kg/m PM eter (2) Chief Complaint And Reason For Visit Unknown Chief Complaint And Reason For Visit Reason For Referral Reason For Referral Unknown Plan Of Care Date Type Action Status Appointment Chanda Juarez BOOKED Future Order: Radiology Order Complete OB Ultrasound > 14 Ordered Weeks ([id number]) Date Type Problem Goal Intervention Status Start [...]
--- OUTSIDE RECORDS SUMMARY | 2017-09-10 16:11 | External Medical Summary | Continuity of Care Document ---
:1990 Author Organization [email or web address] Address [address] [place], [place] [id number] Phone Care Team Providers Name Role Phone [...] second trimester 27 weeks gestation of - Encntr for suprvsn [...] third trimester 30 weeks gestation of - Procedures Procedure Date Immuniz admnin, 1 vac, sngl/combo 19 Yrs + Flu Vaccine - Quadrivalent OB Visit No Charge Hemoglobin count, colorimetric Hematocrit blood count Glucose test Venpnctr fngr/heel/ear stick routne Results Test Name Date and Time Measure Units Reference Range Abnormal Flag Comments Panel Description: Glucose [Mass/volume] in Serum or Plasma --1 hour post 50 g glucose PO GLUCOSE, 125 mg/dL <140 N Test performed at [email or web address] GESTATIONAL SCREEN 14:50:00 [employer] [id number] ([id number] [place] [address]Cgydnbeh: BRO TUCKER DO,MPH Panel Description: HEMOGLOBIN + HEMATOCRIT HEMOGLOBIN 14:50:00 10.5 g/dL 11.7-15.5 L HEMATOCRIT 14:50:00 30.5 % 35.0-45.0 L REPORT COMMENT:FASTING :NOTest performed at [employer] [id number] [place] [address]Ozpusxdh: BRO TUCKER DO,MPH Advance Directives Directive Yes / No Effective Date File Name Unknown Encounters Encounter Practice Location Reason(s) Diagnoses Date Provider Care Team Description For Visit Members Jon Hernandez for Payne Referring In [facility] Tayla. 700 Provider: nadine Mccoy [address], first [facility], [place] Rusty Lucero, [address] [place] [address], third [address], Rafiq Cedeno [id number], [email or web address] [facility] [place], [address], tel:+[phone] gestation [id number], [place], [address] [place], [address]. tel: tel:[phone] Jon Hernandez for Payne Referring In [facility] Tayla. 700 Provider: nadine Mccoy [facility] [address], first [facility], [place] Rusty Lucero, [address] [place] [address], second Jeff [address], E Wilian [id number], [email or web address] Dmitri Augustine [place], [address], tel:21 gestation [id number], [place], [address] [place], [address]. tel: tel:[phone] Jon Augustine Encntr for Payne Referring In [facility] Tayla. 700 Provider: Buffy FUNK [facility] [address], first preg, [place] Rusty Lucero, [address] [place], [place], second Jeff 120, E Cedeno [id number], [email or web address] Dmitri Augustine [place], [address], tel:21 gestation [id number], [place], [address] [place], [address]. tel: tel:[phone] Jon Augustine Encntr for Payne Referring In [facility] Tayla. 700 Provider: Buffy FUNK [facility] [address], first preg, [place] Rusty Lucero, [address] [place], [place], second Jeff 120, E Cedeno [id number], [email or web address] Dmitri Augustine [place], [address], tel:21 gestation [id number], [place], [address] [place], [address]. tel: tel:[phone] Jon Augustine Matern care Payne Referring In [facility] Ultrasound for ot Tayla. 700 Provider: Buffy FUNK [facility] [address], fetl grth, [address], [address] [place], [place], 2nd tri, Jeff 120, E Cedeno [id number], [email or web address] Davide [facility] [place], [address], tel:21 gestation [id number], [place], [address] [place], [address]. tel: tel:[phone] Jon Augustine Encntr for Payne Referring In [facility] Tayla. 700 Provider: Buffy FUNK [facility] [address], first preg, [place] Rusty Lucero, [address] [place], [place], second Jeff 120, E Cedeno [id number], [email or web address] Dmitri Augustine [place], [address], tel:21 gestation [id number], [place], [address] [place], [address]. tel: tel:[phone] Jon Augustine Encntr for Payne Referring In [facility] Tayla. 700 Provider: nadine Mccoy [facility] [address], first preg, [place] Rusty Lucero, [address] [place], [place], second Jeff 120, E Cedeno [id number], Dmitri Augustine [place], [address], tel:21 gestation [id number], [place], [address] [place], [address]. tel: tel:[phone] Jon Augustine Encntr for Payne Referring In [facility] Tayla. 700 Provider: nadine Mccoy [facility] [address], first preg, [place] Rusty Lucero, [address] [place], [place], first Jeff 120, E Cedeno [id number], [email or web address] Dmitri Augustine [place], [address], tel:21 gestation [id number], [place], [address] [place], [address]. tel: tel:[phone] Family History Family Member Diagnosis Age At [...] Insurance type Covered green party ID Authorization(s) [facility] WPPA CI [id number] BMI [place] WPPA CI [id number] BMI [place] WPPA CI [id number] Social History Type Description Quantity Date Captured Alcohol Use Details No Caffeine Use Details Unknown Tobacco Use Status Unknown Smoking Status Never smoker Vital Signs Date / Height Weight BMI Pulse Blood Temperature Respiratory Body Head BMI Time: Rate Pressure Rate Surface Circumference percentile Area 125.00 28.0 114/62 2017 lbs 2 mm[Hg] 1:53 kg/m PM eter (2) Chief Complaint And Reason For Visit Unknown Chief Complaint And Reason For Visit Reason For Referral Reason For Referral Unknown Plan Of Care Date Type Action Status Appointment Chanda Juarez BOOKED Future Order: Radiology Order Complete OB Ultrasound > 14 Ordered Weeks ([id number]) Date Type Problem Goal Intervention Status Start [...]
--- OUTSIDE RECORDS SUMMARY | 2017-09-10 16:11 | External Medical Summary | Continuity of Care Document ---
:1990 Author Organization [facility] Address [address] [place], [place] [id number] Phone Care Team Providers Name Role Phone [...] Members Jon Hernandez for Payne Referring In [facility] Tayla. 700 Provider: nadine Mccoy Medical Ping [address], first preg, Center Rusty Lucero, [address] [place], [place], second Jeff 120, E Cedeno [id number], [email or web address] Augustine [facility] [place], [address], tel:[phone] gestation [id number], [place], [address] [place], [address]. tel: tel:[phone] Jon Augustine Encntr for Payne Referring In [facility] Tayla. 700 Provider: nadine Mccoy Medical Ping [address], first preg, Center Rusty Lucero, [address] [place], [place], second Jeff 120, E Cedeno [id number], [email or web address] [facility] [place], [address], tel:+21 gestation [id number], [place], [address] [place], [address]. tel: tel:[phone] Jon Augustine Encntr for Payne Referring In [facility] Tayla. 700 Provider: nadine Mccoy Medical Ping [address], first preg, Center Rusty Lucero, [address] [place], [place], second Jeff 120, E Cedeno [id number], [email or web address] [facility] [place], [address], tel:21 gestation [id number], [place], [address] [place], [address]. tel: tel:[phone] Jon Augustine Matern care Payne Referring In [facility] Ultrasound for ot or -2016 Tayla. 700 Provider: Buffy FUNK susp poor Medical Ping [address], fetl grth, Center Rusty Lucero, [address] [place], [place], 2nd tri, Jeff 120, E Cedeno [id number], [email or web address] [facility] [place], [address], tel:+[phone] gestation [id number], [place], [address] [place], [address]. tel: tel:[phone] Jon Augustine Encntr for Payne [facility] Tayla. 700 Provider: nadine Mccoy [facility] Ping [address], first preg, [place] Rusty Lucero, [address] [place] [address], second Jeff [address], E Cedeno [id number], [email or web address] Dmitri Augustine [place], [address], tel:21 gestation [id number], [place], [address] [place], [address]. tel: tel:[phone] Jon Augustine Encntr for Payne Referring In [facility] Tayla. 700 Provider: nadine Mccoy [facility] Ping [address], first preg, [place] Rusty Lucero, [address] [place] [address], second Jeff [address], E Cedeno [id number], [email or web address] Davide Dmitri [place], [address], tel:21 gestation [id number], [place], [address] [place] . [place], [address]. tel: tel:[phone] Jon Augustine Encntr for Payne [facility] Tayla. 700 Provider: nadine Mccoy [facility] Ping [address], first preg, [place] Rusty Lucero, [address] [place] [address], first Jeff [address], E Cedeno [id number], [email or web address] Davide [facility] [place], [address], tel:21 gestation [id number], [place], [address] [place] . [place], [address]. tel: tel:[phone] Family History Family Member Diagnosis Age At Onset Maternal Grandfather Cardiovascular Disease Paternal Grandmother Breast Cancer Maternal Grandfather Stroke Maternal Grandmother Diabetes Maternal Grandmother Cardiovascular Disease Maternal Grandmother Hypertension Sister Thyroid Disorder No family history of Venous Thrombosis No family history of Pulmonary Embolism Maternal Grandmother Kidney Cancer Immunizations Vaccine Date Status Comments Influenza, injectable, completed Source: New Immunization Record quadrivalent, preservative free, 3 yrs or older Payers Payer name Insurance type Covered alliance party ID Authorization(s) [facility] CI [id number] BMI [facility] CI [id number] Social History Type Description Quantity Date Captured Alcohol Use Details No Caffeine Use Details Unknown Tobacco Use Status Unknown Smoking Status Never smoker Vital Signs Date / Height Weight BMI Pulse Blood Temperature Respiratory Body Head BMI Time: Rate Pressure Rate Surface Circumference percentile Area 122.00 27.3 109/63 -2017 lbs 5 mm[Hg] 4:21 kg/m PM eter (2) Chief Complaint And Reason For Visit Unknown Chief Complaint And Reason For Visit Reason For Referral Reason For Referral Unknown Plan Of Care Date Type Action Status Appointment Chanda Juarez BOOKED Future Order: Radiology Order Complete OB Ultrasound > 14 Ordered Weeks ([id number]) Date Type Problem Goal Intervention Status Start [...]
--- OUTSIDE RECORDS SUMMARY | 2017-09-10 16:11 | External Medical Summary | Continuity of Care Document ---
:1990 Author Organization [facility] Address [address] [place], [place] [phone] Phone Care Team Providers Name Role Phone [...] third trimester 35 weeks gestation of - Encntr for suprvsn [...] third trimester 33 weeks gestation of - Procedures Procedure Date OB Visit No Charge Results Test Name Date and Time Measure Units Reference Range Abnormal Flag Comments Unknown Advance Directives Directive Yes / No Effective Date File Name Unknown Encounters Encounter Practice Location Reason(s) Diagnoses Date Provider Care Team Description For Visit Members Jon Augustine Streptococcus B Dec-2 Payne Referring In [facility] carrier state 6-201 Tayla. Provider: Health BLESSING, complicating 7 700 Ping PO Box pregnancyEncntr Medical Fast, [address], for suprvsn of Center Rafiq Wilian [place], normal first Jeff Lucero, preg, third 120, [address], [id number], [email or web address] weeks Fatou Augustine, [place], [address]. tel:[phone] tel: , [place]. [id number] tel: [phone] Jon Hernandez for Dec-2 Payne Referring In [facility]omens suprvsn of normal 0-201 Tayla. Provider: Health [place], first preg, third 7 700 Ping PO Box trimesterEncounte Medical Fast, [address]22, r For Center Rafiq Olivas, Screening For Jeff Lucero, Streptococcus B36 120, [address], [id number], weeks gestation Fatou Augustine, [place], [address]. tel:[phone] tel: , [place]. [id number] tel: [phone] Jon Hernandez for Dec-1 Payne Referring In Womens suprvsn of normal 1-201 Tayla. Provider: Health PA, first preg, third 7 700 Ping PO [address] [email or web address] weeks Medical Fast, [address] 1522, gestation of [place] Rafiq Cedeno [place], Jeff Lucero [place], 120, [address], [id number], [facility], [place], [address]. tel: [phone] tel: , [place]. [id number] tel: [phone] Jon Augustine Encntr for Nov-2 Payne Referring In Womens suprvsn of normal 8-201 Tayla. Provider: Health PA, first preg, third 7 700 Ping PO Box [email or web address] weeks Medical Fast, [address] 1522, gestation of [place] Rafiq Wilian Olivas, Jeff Lucero [facility], 120, [address], [id number], [facility], [place], [address]. tel: [phone] tel: , [place]. [id number] tel: [phone] Jon Augustine Encntr for Nov-0 Payne Referring In Womens suprn of normal 7-201 Tayla. Provider: Health PA, first preg, third 7 700 Ping PO Box [email or web address] weeks Medical Fast, [address] 1522, gestation of [place] Rafiq Wilian Olivas, Jeff Lucero [facility], 120, [address], [id number], [facility] [place], [address]. tel: [phone] tel: , [place]. [id number] tel: [phone] Jon Augustine Encntr for Oct-1 Payne Referring In [facility]omens suprvsn of normal 8-201 Tayla. Provider: Health PA, first preg, 7 700 Ping PO Box second Medical Fast, [address] 1522, [email or web address] weeks [place] Rafiq Wilian Olivas, gestation of Jeff Lucero, 120, [address], [id number], [facility] [place], [address]. tel: [phone] tel: , [place]. [id number] tel: [phone] Jon Augustine Encntr for Sep-2 Payne Referring In Womens suprvsn of normal 7-201 Tayla. Provider: Buffy FUNK, first preg, 7 700 Ping PO Box second Medical Fast, [address] 1522, weeks [place] Rafiq Olivas, gestation of Jeff Lucero, 120, [address], [id number], [facility], [place], [address]. tel: [phone] tel: , [place]. [id number] tel: [phone] Jon Augustine Encntr for Aug-3 Payne Referring In [facility]omens suprvsn of normal 0-201 Tayla. Provider: Buffy FUNK, first preg, 7 700 Ping PO Box second Medical Fast, [address] 1522, [email or web address] weeks [place] Rafiq Olivas, gestation of Jeff Lucero, 120, [address], , [facility], [place], [address]. tel: [phone] tel: , [place]. [id number] tel: [phone] Jon Augustine Matern care for Aug-3 Payne Referring In [facility]omens Ultrasound oth or susp poor 0-201 Tayla. Provider: Buffy FUNK, fetl grth, 2nd 7 700 Ping PO Box tri, [email or web address] weeks Medical Fast, [address] 1522, gestation of [facility] Wilian Olivas, Jeff Lucero, 120, [address], , [facility], [place], [address]. tel: [phone] tel: , [place]. [id number] tel: [phone] Jon Augustine Encntr for Aug-2 Payne Referring In Womens suprvsn of normal 2-201 Tayla. Provider: Buffy FUNK, first preg, 7 700 Ping PO Box second Medical Fast, [address] 1522, [email or web address] weeks [facility] Wilian Olivas, gestation of Jeff Lucero, 120, [address], [id number], [facility] [place], [address]. tel: [phone] tel: , [place]. [id number] tel: [phone] Jon Augustine Encntr for Feb- Payne Referring In Womens suprvsn of normal 9-201 Tayla. Provider: Buffy FUNK, first preg, 7 700 Ping PO Box second [facility], [address] 1522, [email or web address] weeks Center Rafiq Olivas, gestation of Jeff Lucero, 120, [address], [id number], [place], [address]. tel:[phone] tel:[phone] , . [id number] tel: [phone] Jon Augustine Encntr for Ramesh- Payne Referring In Womens suprvsn of normal 1-201 Tayla. Provider: Buffy FUNK, first preg, first 7 700 Ping PO [address] [email or web address] weeks Medical Fast, [address] 1522, gestation of Center Rafiq Olivas, Jeff Lucero [facility], 120, [address], [id number], [place], [address]. tel:[phone] tel:[phone] , . [id number] tel: [phone] Family History Family Member Diagnosis Age At [...] Insurance type Covered democrat ID Authorization(s) BMI [place] WPPA CI [id number] BMI [place] WPPA CI [id number] [employer] [place] WPPA CI [id number] Social History Type Description Quantity Date Captured Alcohol Use Details No Caffeine Use Details Unknown Tobacco Use Status Unknown Smoking Status Never smoker Vital Signs Date / Height Weight BMI Pulse Blood Temperature Respiratory Body Head BMI Time: Rate Pressure Rate Surface Circumference percentile Area 135.70 30.4 118/72 -2016 lbs 2 mm[Hg] 4:11 kg/m PM eter (2) Chief Complaint And Reason For Visit Unknown Chief Complaint And Reason For Visit Reason For Referral Reason For Referral Unknown Plan Of Care Date Type Action Status Appointment Chanda Juarez BOOKED Appointment Chanda Juarez BOOKED Future Order: Radiology Order Complete OB Ultrasound > 14 Ordered Weeks ([id number]) Date Type Problem Goal Intervention Status Start [...]
--- OUTSIDE RECORDS SUMMARY | 2017-09-10 16:11 | External Medical Summary | Continuity of Care Document ---
:1991 Author Organization [facility] Address [address] [place], [place] [phone] Phone Care Team Providers Name Role Phone [...] Procedure Date OB Visit No Charge - FINE SANDER Results Test Name Date and Time Measure Units Reference Range Abnormal Flag Comments Unknown Advance Directives Directive Yes / No Effective Date File Name Unknown Encounters Encounter Practice Location Reason(s) Diagnoses Date Provider Care Team Description For Visit Members Jon Augustine Encntr for Apyne Referring In [facility] suprvsn of Tayla. 700 Provider: nadine Mccoy Medical Ping [address], first preg, Center Rusty Lucero, [address] [place], [place], second Jeff 120, E Wilian [id number], [email or web address] Dmitri Augustine [place], [address], tel: gestation [phone], [place], [address] [place], [address]. tel: tel:[phone] Jon Augustine Matern care Payne Referring In [facility]omens Ultrasound for oth -2016 Tayla. 700 Provider: Buffy FUNK [facility] Medical Ping [address], fetl grth, [address], [address] [place] [address], 2nd tri, Jeff 120, E Cdeeno [id number], [email or web address] Dmitri Augustine [place], [address], tel:+21 gestation [id number], [place], [address] [place], [address]. tel: tel:[phone] [phone] Jon Augustine Encntr for Payne Referring In [facility] Tayla. 700 Provider: nadine Mccoy [facility] Ping [address], first preg, [address]y [address], [address] [place] [address], second Jeff 120, E Cedeno [id number], [email or web address] Dmitri Augustine [place], [address], tel:21 gestation [id number], [place], [address] [place], [address]. tel: tel:[phone] Jon Augustine Encntr for Payne Referring In [facility] Tayla. 700 Provider: nadine Mccoy [facility] Ping [address], first preg, [address], [address] [place] [address], second Jeff 120, E Cedeno [id number], [email or web address] Dmitri Augustine [place], [address], tel:21 gestation [id number], [place], [address] [place], [address]. tel: tel:[phone] Jon Augustine Encntr for Payne Referring In [facility] Tayla. 700 Provider: nadine Mccoy [facility] Ping [address], first preg, [address]y [address], [address] [place] [address], first Jeff 120, E Wilian [id number], [email or web address] Dmitri Augustine PO [place] weeks [place], [address], tel:21 gestation [id number], [place], [address] [place], [address]. tel: tel:[phone] Family History Family Member Diagnosis Age At [...] Insurance type Covered democrat ID Authorization(s) BMI [facility] CI [id number] Social History Type Description Quantity Date Captured Alcohol Use Details No Caffeine Use Details Unknown Tobacco Use Status Unknown Smoking Status Never smoker Vital Signs Date / Height Weight BMI Pulse Blood Temperature Respiratory Body Head BMI Time: Rate Pressure Rate Surface Circumference percentile Area 116.10 26.0 lbs 3 mm[Hg] 8:32 kg/m AM eter (2) Chief Complaint And Reason For Visit Unknown Chief Complaint And Reason For Visit Reason For Referral Reason For Referral Unknown Plan Of Care Date Type Action Status Appointment Chanda Juarez BOOKED Future Order: Radiology Order Complete OB Ultrasound > 14 Ordered Weeks ([id number]) Date Type Problem Goal Intervention Status Start [...]
[2017-09-10] MEDS ORDERED: DINOPROSTONE 10 MG VAGINAL INSERT VG ONE (16:18)
[2017-09-10] MEDS ORDERED: CALCIUM CARBONATE Chewable 500mg TABLET PO PRN (16:18)
[2017-09-10] MEDS ORDERED: LIDOCAINE 1% (10mg/ml) 2mL INJ PF SDV ID PRN (16:18)
[2017-09-10] MEDS ORDERED: METHYLERGONOVINE 0.2 MG/ML INJECTION IM PRN (16:18)
[2017-09-10] MEDS ORDERED: CARBOPROST 250 MCG/ML INJECTION IM PRN (16:18)
[2017-09-10] MEDS ORDERED: TERBUTALINE 1 MG/ML VIAL SQ PRN (16:18)
[2017-09-10] MEDS ORDERED: ACETAMINOPHEN 500 MG TABLET PO PRN (16:18)
[2017-09-10] MEDS ORDERED: SALINE FLUSH 10ml SYRINGE IV PRN (16:18)
[2017-09-10] MEDS ORDERED: MAG-AL + SIM ORAL LIQUID 30ml PO PRN (16:18)
[2017-09-10 17:30] VITALS: BMI 23.9
[2017-09-11] MEDS ORDERED: D5LR 1,000 ML IV PRN (05:00)
[2017-09-11] MEDS ORDERED: OXYTOCIN DRIP 30 UNIT/500 ML ML IV PRN (05:08)
[2017-09-11] MEDS: CLINDAMYCIN PB 900 MG/50 ML BAG IV SCH ×3 (08:45→18:33)
--- NOTE | 2017-09-11 09:16 | Anesthesia Preoperative Report ---
Anesthesia Epidural/Spinal Rec - Date and Time Date: 09/11/17 Preoperative Diagnosis: term induction Procedure: Labor Epidural Plan: Epidural - Vital Signs /Para: P:0 - Medictaions & Allergies Inpatient Medications: Current Medications Acetaminophen (Tylenol) 500 - 1,000 mg PO Q4H PRN PRN Reason: Pain Last Admin: 09/10/17 22:52 Dose: 1,000 mg Al Hydroxide/Mg Hydroxide (Maalox Plus) 30 ml PO Q3H PRN PRN Reason: Indigestion Calcium Carbonate (Tums) 500 - 1,000 mg PO Q2H PRN PRN Reason: Indigestion Carboprost Tromethamine (Hemabate) 250 mcg IM O PRN PRN Reason: .Downtime Diphenhydramine HCl (Benadryl) 50 mg PO HS PRN PRN Reason: Sleep Last Admin: 09/10/17 22:52 Dose: 50 mg Lactated Ringer's (Lactated Ringers) 1,000 mls @ 999 mls/hr IV .Q1H1M PRN Clindamycin Phosphate (Cleocin Premix) 900 mg in 50 mls @ 50 mls/hr IV Q8H DOMITILA Last Admin: 09/11/17 08:45 Dose: 50 mls/hr Dextrose/Lactated Ringer's (Dextrose 5%-Lactated Ringers) 1,000 mls @ 125 mls/ hr IV .Q8H PRN PRN Reason: Labor Last Admin: 09/11/17 05:00 Dose: 125 mls/hr Oxytocin (Pitocin Drip) 30 unit in 500 mls @ 2 mls/hr IV .Q24H PRN; Protocol PRN Reason: Induction/Augmentation Last Admin: 09/11/17 05:00 Dose: 2 mls/hr Lidocaine HCl (Xylocaine-Mpf 1% Vial) 0.2 mg ID O PRN PRN Reason: IV Start Methylergonovine Maleate (Methergine) 0.2 mg IM O PRN Misoprostol (Cytotec) 800 mcg MA ONCE PRN Sodium Chloride (Iv Flush) 10 - 80 ml IV PRN PRN PRN Reason: Flushing Terbutaline Sulfate (Brethine) 0.25 mg SQ PRN PRN Allergies/Adverse Reactions: Allergies Allergy/AdvReac Type Severity Reaction Status Date / Time Penicillins Allergy Intermediate Hives Verified 09/10/17 16:26 - Home Medications Home Medications: Home Medications Medication Instructions Recorded Confirmed Type Iron DAILY 08/25/17 History Multivitamin DAILY 08/25/17 History Probiotic DAILY 08/25/17 History - Medical History Respiratory: DENIES: Asthma, Bronchitis, Chronic Obstructive Pulmonary Disease (COPD), Dyspnea, Orthopnea, Pulmonary Embolism, Pneumonia, Upper Respiratory Infection, Pulmonary Edema, Sleep Apnea, Tuberculosis, Other Cardiovascular: DENIES: Abnormal EKG, Angina, Arrhythmia, Congestive Heart Failure, Coronary Artery Disease, Heart Murmur, Hypertension, Hypotension, High Cholesterol, Myocardial Infarction, Rheumatic Fever, Valvular Heart Disease, Other Gastrointestional: DENIES: Obstructive Bowel, Hepatitis, Cirrhosis, Nausea or Vomiting Present, Gastroesophageal Reflux Disease, Gastrointestinal Bleeding, Hiatal Hernia, Ulcer , Morbid Obesity, Other Neuro/Musculoskeletal: Denies: HX.MS.OSAR, Back Problems, Cerebrovascular Accident, Depression, Headaches, Loss of Consciousness, Muscle Weakness, Neuromuscular Disorder, Paralysis, Paresthesia, Syncope, Seizures, Other Renal/Endocrine: DENIES: Diabetes Mellitus Type 1, Diabetes Mellitus Type 2, Renal Failure, Dialysis, Thyroid Disease, Weight Loss, Weight Gain, Other Other History: Reports: Now DENIES: Anesthesia Reactions, Blood Transfusions, Chemotherapy, Cancer, Hemophilia, Malignant Hyperthermia, Sickle Cell Disease, Other - Surgical History Anesthesia Reactions: None Hx Family Anesthesia Reaction: No History of Motion Sickness: No - Social History Smoking Status: Never smoker Second Hand Exposure: No Substance Use Type: does not use Alcohol Intake: former Alcohol Intake Frequency: does not drink Hx Chewing Tobacco Use: No - Pertinent Findings Lab Data: CBC and BMP 09/10/17 16:39 - Physical Exam Respiratory Exam: lungs clear, bilateral breath sounds equal Cardiovascular Exam: regular rate and rhythm, no murmur - Airway Assessment Mallampati Score: I TMD: 3 Fingerbreadths Overall Assessment: no airway concerns - ASA ASA Score: 2 - Discussion Discussion: Discussed risks/options/alternatives of anesthesia and questions answered. Patient consents. Nursing pain assessment noted. Anesthesia Discussion: spouse Attestation Statement: Prior to the delivery of any anesthetic medication, I examined the patient, developed the plan, obtained the patient's consent and discussed the risk and benefits of the procedure with the patient/guardian.
[2017-09-11] MEDS: LR 1,000 ML IV PRN ×2 (10:25→15:07)
[2017-09-11] MEDS ORDERED: ROPIVACAINE 1% 10MG/ML INJ 200 MG, SUFentanil 50 MCG in NS 80 ML EPI ONE (13:45)
[2017-09-11] MEDS ORDERED: HYDROCORTISONE 2.5% CREAM 30gm RECTALLY PRN (15:58)
[2017-09-11] MEDS ORDERED: DiphenhydrAMINE 25 MG CAPSULE PO PRN (15:58)
[2017-09-11] MEDS ORDERED: OXYTOCIN DRIP 30 UNIT/500 ML ML IV SCH (16:00)
--- NOTE | 2017-09-11 17:07 | Labor and Delivery Note ---
DATE OF DELIVERY 09/11/2017 Chanda is a 26-year-old 1 at 40 weeks 6 days gestational age who was brought in last evening for Cervidil cervical ripening. This morning she was started on Pitocin as well as antibiotics for her group B strep status. Her membranes were ruptured artificially, returning clear fluids. She received an epidural. She progressed nicely throughout labor. At complete, she was only gladys every 6 minutes, so her pitocin was restarted. She pushed for approximately an hour and a half. She had a spontaneous vaginal delivery in the SAMI position of a viable female infant, Apgars 8/9, weight 3514g, name "Samuel." The baby was vigorous at delivery so she was placed on mom's abdomen and the cord clamping was delayed for more than two minutes. The placenta delivered spontaneously. She had a small left perineal laceration as well as a small right vaginal laceration that were both repaired with 2-0 Vicryl. Mom and baby tolerated the delivery well. [facility]
--- NOTE | 2017-09-11 17:20 | Anesthesia Postoperative Note ---
- Date and Time Date: 09/11/17 Time: 17:10 - Status Patient Participated in Evaluation: Patient Participated in Person Respiratory Function: Airway Patent, Regular Respirations Cardiovascular Function: Regular Pulse Mental Status: Alert and Oriented Pain Intensity: 0 Hydration: Taking PO Fluids Complications During Recover: None Apparent Post Anesthesia Care Notes: moves lower extremeties. - Follow-Up Instructions Instructions: Per Surgeon
[2017-09-11] MEDS: IBUPROFEN 800 MG TABLET PO PRN (19:05)
[2017-09-12] MEDS: IBUPROFEN 800 MG TABLET PO PRN ×3 (03:57→23:10)
--- NOTE | 2017-09-12 06:28 | OB/GYN Progress Note ---
OB-PP Progress Note - General PPD1 Maternal Group B Strep: Positive Maternal blood type: AB+ Maternal Rubella Status: Immune - Subjective Date: 09/12/17 Lochia: Minimal Pain: controlled Voiding: voiding Nausea or Vomiting Present: No - Objective Vital Signs: Last Vital Signs Temp 97.9 F 09/11/17 20:05 Resp 20 09/11/17 20:05 BP 129/71 09/11/17 20:05 Pulse Ox 97 09/11/17 20:05 General: alert and oriented Abdomen: fundus firm, non-tender Extremities: non-tender Edema: none - Assessment Assessment: SP, - Plan Plan: routine care Expected date of discharge: 09/13/17
[2017-09-12] MEDS: DOCUSATE CALCIUM 240 MG CAPSULE PO SCH (12:14)
[2017-09-12] MEDS: HYDROCODONE/APAP 5mg/325mg TABLET PO PRN ×2 (13:22→23:10)
[2017-09-13] MEDS: DOCUSATE CALCIUM 240 MG CAPSULE PO SCH (07:44)
[2017-09-13] MEDS: IBUPROFEN 800 MG TABLET PO PRN (07:44)
[2017-09-13 07:51] VITALS: RESP 16
[2017-09-13 15:26] VITALS: BP 114/59; PULSE 88; TEMP 98.3; O2SAT 97
== END 2017-09-13 15:45 | disposition home or self-care (01) | DRG 775 ==
LOC: MC 09-10 16:00
PROVIDERS: ADMIT Obstetrics & Gynecology; ATTEND Obstetrics & Gynecology